=== PATIENT | female | born 1975 | race Caucasian/White ===

== ENCOUNTER 2017-01-28 08:41 | Emergency (ER) | payer MEDICAID ==
[~2017-01-28] VITALS: Ht 157.5 cm; Wt 65.8 kg
[2017-01-28 08:56] VITALS: BP 135/92
--- NOTE | 2017-01-28 09:00 | NUR ---
Patient ambulated to bed 07.
--- NOTE | 2017-01-28 09:04 | NUR ---
Dr. Laboy evaluating patient at bedside.
[2017-01-28] MEDS ORDERED: ONDANSETRON 4 MG ODT PO ONE (09:10)
[2017-01-28] MEDS ORDERED: KETOROLAC 60 MG/2 ML VIAL IM ONE (09:10)
--- NOTE | 2017-01-28 09:30 | NUR ---
41/F presents to the ED with c/o vomiting, abdominal pain and headache that started yesterday. Pt c/o diffuse abdominal pain, 8/10. No vomiting noted with in ED. Skin warm and dry, normal in color for ethnicity. Patient is AOX4, clear speech. Abdomen soft, non tender, active bowel sounds x4 quadrants.
--- NOTE | 2017-01-28 10:01 | NUR ---
Patient provided with water for po challenge. Will continue to monitor.
[2017-01-28] MEDS ORDERED: PROMETHAZINE 25 MG/ML VIAL IM ONE (10:10)
--- NOTE | 2017-01-28 10:34 | NUR ---
PLACED IN POSITION OF COMFORT. DIMMED LIGHTS. DAUGHTER AT BEDSIDE. PT IN NO DISTRESS. VSS.
[2017-01-28 10:42] VITALS: BP 128/86
--- NOTE | 2017-01-28 10:43 | NUR ---
Patient discharged with v/s stable. Written and verbal after care instructions given and explained. Patient alert, oriented and verbalized understanding of instructions. Ambulatory with steady gait. All questions addressed prior to discharge. ID band removed. Patient advised to follow up with PMD. Rx of ZOFRAN AND MOTRIN given. Patient educated on indication of medication including possible reaction and side effects. Opportunity to ask questions provided and answered.
== END 2017-01-28 10:43 | disposition home or self-care (01) ==
LOC: MED 08:41
DX: K52.9 Noninfective gastroenteritis and colitis, unspecified (principal); F17.200 Nicotine dependence, unspecified, uncomplicated; Z90.710 Acquired absence of both cervix and uterus
CPT/HCPCS: 82948; 96372; 99284; J1885; J2550; S0119

== ENCOUNTER 2017-02-01 14:27 | Emergency (ER) | payer MEDICAID ==
[~2017-02-01] VITALS: Ht 157.5 cm; Wt 65.8 kg
[2017-02-01 14:43] VITALS: BP 137/94
--- NOTE | 2017-02-01 16:17 | NUR ---
PT AMBULATED TO BED 6.
--- NOTE | 2017-02-01 16:18 | NUR ---
41/F BIB DAUGHTER /C/O LEFT SHOULD PAIN SINCE LAST NOC. PT DENIES ANY FALL OR TRAUMA. HX CVA 1 YEAR AGO, NO DEFICITS. DENIES N/V/D; SKIN IS PINK/WARM/DRY; AAOX4 WITH EVEN AND STEADY GAIT; LUNGS CLEAR BL; HR EVEN AND REGULAR; PT DENIES ANY FEVER, CP, SOB, OR COUGH AT THIS TIME; PATIENT STATES PAIN OF 8/10 AT THIS TIME; PATIENT POSITIONED FOR COMFORT; HOB ELEVATED; BEDRAILS UP X2; BED DOWN. ER MD MADE AWARE OF PT STATUS.
[2017-02-01] MEDS ORDERED: NACL 0.9% 1,000 ML IV SCH (16:20)
[2017-02-01] MEDS ORDERED: ONDANSETRON 4 MG/2 ML VIAL IVP ONE (16:20)
--- NOTE | 2017-02-01 16:22 | NUR ---
Patient being evaluated by physician at bedside.
[2017-02-01] MEDS ORDERED: KETOROLAC 30 MG/ML VIAL IVP ONE (16:25)
[2017-02-01 16:53] LABS: BASOPHILS # (AUTO) 0.1 K/uL (0.00-0.22); BASOPHILS % (AUTO) 1.6 % (0.0-2.0); EOSINOPHILS # (AUTO) 0.2 K/uL (0-0.4); EOSINOPHILS % (AUTO) 2.2 % (0.0-4.0); HEMATOCRIT 42.2 % (36-48); HEMOGLOBIN 13.8 g/dL (12.0-16.0); LYMPHOCYTES # (AUTO) 1.2 K/uL (2.5-16.5); LYMPHOCYTES % (AUTO) 14.7 % (20.5-51.1); MEAN CORPUSCULAR HEMOGLOBIN 29 pg (27-31); MEAN CORPUSCULAR HGB CONC 33 g/dL (33-37); MEAN CORPUSCULAR VOLUME 89 fL (80-94); MONOCYTES # (AUTO) 0.2 K/uL (0.8-1.0); MONOCYTES % (AUTO) 3.1 % (1.7-9.3); NEUTROPHILS # (AUTO) 6.1 K/uL (1.8-7.7); NEUTROPHILS % (AUTO) 78.4 % (42.2-75.2); PLATELET COUNT (AUTO) 210 K/uL (140-450); RED BLOOD CELL COUNT(AUTO) 4.76 MIL/uL (4.20-5.40); RED CELL DISTRIBUTION WIDTH 13.1 % (11.6-13.7); WHITE BLOOD COUNT (AUTO) 7.8 K/uL (4.8-10.8)
[2017-02-01 16:54] LABS: APPEARANCE,URINE CLEAR (CLEAR); BILIRUBIN,URINE NEGATIVE (NEGATIVE); BLOOD, URINE NEGATIVE (NEGATIVE); COLOR,URINE YELLOW (YELLOW); LEUKOCYTE ESTERASE ,URINE NEGATIVE (NEGATIVE); NITRITE, URINE NEGATIVE (NEGATIVE); PH,URINE 5.5 (5.0-9.0); PROTEIN,URINE NEGATIVE (NEGATIVE); UGLUCOSE NEGATIVE (NEGATIVE); UROBILINOGEN,URINE 0.2 EU/dL (0.2 - 1)
[2017-02-01 17:02] LABS: BACTERIA,URINE FEW /HPF (None Seen); RBC,URINE NONE SEEN /HPF (0-5); SQUAMOUS EPITHELIAL CELL,UR FEW /LPF (0-3 (FEW)); WBC,URINE 0-5 (RARE) /HPF (0-5)
[2017-02-01 17:23] LABS: ANION GAP 13.2 (8-16); CARBON DIOXIDE 25.6 mmol/L (21-32); POTASSIUM 3.8 mmol/L (3.5-5.1)
[2017-02-01 17:24] LABS: ALBUMIN 4.1 g/dL (3.4-5.0); CALCIUM 8.8 mg/dL (8.5-10.1); CREATININE 0.7 mg/dL (0.6-1.3); TOTAL BILIRUBIN 0.5 mg/dL (0.0-1.0); TOTAL PROTEIN, SERUM 7.3 g/dL (6.4-8.2)
[2017-02-01 18:19] VITALS: BP 119/79
== END 2017-02-01 18:19 | disposition home or self-care (01) ==
LOC: MED 14:27
DX: S46.912A Strain of unspecified muscle, fascia and tendon at shoulder and upper arm level, left arm, initial encounter (principal); Z86.73 Personal history of transient ischemic attack (TIA), and cerebral infarction without residual deficits; X58.XXXA Exposure to other specified factors, initial encounter; Y93.89 Activity, other specified; Y92.89 Other specified places as the place of occurrence of the external cause; Y99.8 Other external cause status
CPT/HCPCS: 36415; 80053; 81001; 81025; 82150; 83690; 85025; 96361; 96374; 96375; 99284; J1885; J2405; J7030

== ENCOUNTER 2019-01-24 22:23 | Emergency (ER) | payer MEDICAID ==
[~2019-01-24] VITALS: Ht 160 cm; Wt 59.0 kg
[2019-01-24 22:30] VITALS: BP 130/87
--- NOTE | 2019-01-24 22:30 | NUR ---
TO BED # 09 AMBULATORY
--- NOTE | 2019-01-24 22:38 | NUR ---
43/F COMPLAINS OF NEW RASH TO RIGHT LATERAL NECK FOR 1D. BRUNING SENSATION ASSOCIATED WITH RASH. PT DENIES HCX. DENIES RX. AO X4. ABLE TO VERBALIZE NEEDS. FAMILY AT BEDSIDE. MADE AWARE.
--- NOTE | 2019-01-24 22:49 | NUR ---
Dr. Wisdom evaluating patient at bedside.
[2019-01-24 23:12] VITALS: BP 135/82
--- NOTE | 2019-01-24 23:12 | NUR ---
Patient discharged with v/s stable. Written and verbal after care instructions given and explained. Patient alert, oriented and verbalized understanding of instructions. Ambulatory with steady gait. All questions addressed prior to discharge. ID band removed. Patient advised to follow up with PMD. Rx of BENADRYL AND HYDROCORTISONE given. Patient educated on indication of medication including possible reaction and side effects. Opportunity to ask questions provided and answered.
== END 2019-01-24 23:12 | disposition home or self-care (01) ==
LOC: MED 22:23
DX: R21 Rash and other nonspecific skin eruption (principal); K21.9 Gastro-esophageal reflux disease without esophagitis; Z86.73 Personal history of transient ischemic attack (TIA), and cerebral infarction without residual deficits
CPT/HCPCS: 99282

== ENCOUNTER 2019-03-09 01:25 | Emergency (ER) | payer MEDICAID ==
[~2019-03-09] VITALS: Ht 165.1 cm; Wt 59.9 kg
--- NOTE | 2019-03-09 01:34 | NUR ---
PT TAKEN TO BED 8
[2019-03-09 01:35] VITALS: BP 141/94
--- NOTE | 2019-03-09 01:35 | NUR ---
PT BIB FRIEND C/O RASH. PT STATES SUDDEN ONSET OF RASH TO LEFT ARM, ABD AND FACE STARTED TODAY; SKIN DRY, MILD REDNESS TO SIGHTS; +PRUITIS. PT TOOK BENADRYL AT 2130 W/O RELIEF. PT STATES 0/10 PAIN. PT IN BED; SAFETY PRECAUTIONS IN PLACE. PENDING ERMD LALITHA.
--- NOTE | 2019-03-09 01:40 | NUR ---
Dr. Wisdom examining patient.
[2019-03-09 02:15] VITALS: BP 141/94
--- NOTE | 2019-03-09 02:15 | NUR ---
Patient discharged with v/s stable. Patient acting approprialty and states she is ready to go home; 0/10 pain. Written and verbal after care instructions given and explained. Patient alert, oriented and verbalized understanding of instructions. Ambulatory with steady gait. All questions addressed prior to discharge. ID band removed. Patient advised to follow up with PMD. Rx of Benadryl given. Patient educated on indication of medication including possible reaction and side effects. Opportunity to ask questions provided and answered.
== END 2019-03-09 02:15 | disposition home or self-care (01) ==
LOC: MED 01:25
DX: L74.0 Miliaria rubra (principal); K21.9 Gastro-esophageal reflux disease without esophagitis
CPT/HCPCS: 99282; Q0163

== ENCOUNTER 2020-03-06 01:50 | Emergency (ER) | payer SELFPAY ==
[~2020-03-06] VITALS: Ht 160 cm; Wt 63.5 kg
[2020-03-06 01:50] VITALS: BP 150/103
--- NOTE | 2020-03-06 01:51 | NUR ---
PT TAKEN TO BED 7
--- NOTE | 2020-03-06 01:56 | NUR ---
Dr. Laura examining patient.
[2020-03-06] MEDS ORDERED: NACL 0.9% 1,000 ML IV ONE (02:00)
[2020-03-06] MEDS ORDERED: ONDANSETRON 4 MG/2 ML VIAL IVP ONE (02:00)
--- NOTE | 2020-03-06 02:00 | NUR ---
RECEVIED A 44/F FROM [facility] WITH A C/O ALOC SECONDARY TO MARIJUANA USE. PTS DAUGHTER STATES "SHE HAD A LITTLE PIECE OF AN EDIBLE". PT IS LETHARGIC BUT IS ALERT TO NAME, BIRTHDAY, PLACE, AND EVENT. PLACED ONTO CONTINOUS CARDIAC MONITORING. DR CARRASCO AT BEDSIDE FOR MSE.
[2020-03-06 02:09] LABS: BASOPHILS # (AUTO) 0.1 K/uL (0.00-0.22); BASOPHILS % (AUTO) 1.5 % (0.0-2.0); EOSINOPHILS # (AUTO) 0.1 K/uL (0-0.4); EOSINOPHILS % (AUTO) 1.2 % (0.0-4.0); HEMATOCRIT 37.5 % (36-48); HEMOGLOBIN 12.3 g/dL (12.0-16.0); LYMPHOCYTES # (AUTO) 2.6 K/uL (2.5-16.5); LYMPHOCYTES % (AUTO) 37.2 % (20.5-51.1); MEAN CORPUSCULAR HEMOGLOBIN 28 pg (27-31); MEAN CORPUSCULAR HGB CONC 33 g/dL (33-37); MEAN CORPUSCULAR VOLUME 84.6 fL (80-94); MONOCYTES # (AUTO) 0.5 K/uL (0.8-1.0); NEUTROPHILS # (AUTO) 3.7 K/uL (1.8-7.7); NEUTROPHILS % (AUTO) 53.1 % (42.2-75.2); PLATELET COUNT (AUTO) 300 K/uL (140-450); RED BLOOD CELL COUNT(AUTO) 4.43 MIL/uL (4.20-5.40); RED CELL DISTRIBUTION WIDTH 15.8 % (11.6-13.7); WHITE BLOOD COUNT (AUTO) 6.9 K/uL (4.8-10.8)
--- NOTE | 2020-03-06 02:11 | NUR ---
EKG PERFORMED AT BEDSIDE
[2020-03-06] MEDS ORDERED: METOCLOPRAMIDE 10 MG/2 ML INJ VIAL IVP ONE (02:15)
[2020-03-06] MEDS ORDERED: METOCLOPRAMIDE 10 MG/2 ML INJ VIAL ONE (02:15)
--- NOTE | 2020-03-06 02:17 | NUR ---
PT EXPERIENCING PERSISTANT EPISODES OF VOMITTING DESPITE ZOFRAN ADMINISTRATION. ORDER RECEVIED FOR 5MG REGLAN IVP, WILL MEDICATE ORDERED.
[2020-03-06 02:32] LABS: ALBUMIN 3.7 g/dL (3.4-5.0); ANION GAP 14.2 (8-16); ASPARTATE AMINOTRANSFERASE 12 U/L (15-37); CARBON DIOXIDE 23.4 mmol/L (21-32); CHLORIDE 106 mmol/L (98-107); CREATININE 0.9 mg/dL (0.6-1.3); FREE T4 (FREE THYROXINE) 1.13 ng/dL (0.76-1.46); GFR ARICAN-AMERICAN 87 mL/min (>90); GLUCOSE 140 mg/dL (74-106); SODIUM SERUM 141 mmol/L (136-145); THYROID STIMULATING HORMONE 1.81 uIU/mL (0.34-3.74); TOTAL BILIRUBIN 0.3 mg/dL (0.0-1.0); UREA NITROGEN, BLOOD 10 mg/dL (7-18)
[2020-03-06 02:39] LABS: ACETAMINOPHEN < 0.5 ug/ml (10-30); POTASSIUM 2.6 mmol/L (3.5-5.1); SALICYLATE < 2.8 mg/dL (2.8-20.0)
--- NOTE | 2020-03-06 02:44 | NUR ---
NO VOMITTING NOTED AFTER REGLAN ADMINISTRATION. WILL CONTINUE TO MONITOR.
[2020-03-06] MEDS ORDERED: KCL 20 MEQ/WATER INJ PREMIX 200 ML IV ONE (02:45)
[2020-03-06] MEDS ORDERED: POTASSIUM CHLORIDE 20% 40 MEQ/15 ML UDC PO ONE (02:45)
--- NOTE | 2020-03-06 02:48 | NUR ---
REPORT RETURNED TO PRIMARY RN, RENNY.
[2020-03-06 07:00] VITALS: BP 127/73
--- NOTE | 2020-03-06 07:00 | NUR ---
PT DISCHARGED WITH PAPERWORK. EDUCATED PT REGARDING MEDICATIONS AND D/C INSTRUCTIONS. PT VERBALIZED UNDERSTANDING OF TEACHING. TOLD PT TO FOLLOW UP WITH PCP AND WHEN TO RETURN TO ED. PT AT STABLE CONDITION. ALL QUESTIONS ANSWERED.
== END 2020-03-06 07:00 | disposition home or self-care (01) ==
LOC: MED 01:50
DX: T40.7X5A Adverse effect of cannabis (derivatives), initial encounter (principal); R11.2 Nausea with vomiting, unspecified; E87.6 Hypokalemia; K21.9 Gastro-esophageal reflux disease without esophagitis; Y92.89 Other specified places as the place of occurrence of the external cause
CPT/HCPCS: 36415; 80053; 84439; 84443; 85025; 93005; 96361; 96365; 96375; 99284; G0480; G0482; J2405; J2765; J3480; J7030

== ENCOUNTER 2023-06-05 21:57 | Emergency (ER) | payer MEDICAID ==
[~2023-06-05] VITALS: Ht 162.6 cm; Wt 72.6 kg
[2023-06-05 22:17] VITALS: BP 135/80; PULSE 63; RESP 16; TEMP 97; O2SAT 98
[2023-06-05] MEDS ORDERED: KETOROLAC 30 MG/ML VIAL IVP ONE (23:35)
[2023-06-05] MEDS ORDERED: NACL 0.9% 1,000 ML IV ONE (23:35)
[2023-06-06 00:17] LABS: BASOPHILS % (AUTO) 0.5 % (0.0-2.0); EOSINOPHILS % (AUTO) 0.5 % (0.0-4.0); HEMATOCRIT 35.6 % (36-48); HEMOGLOBIN 11.9 g/dL (12.0-16.0); LYMPHOCYTES % (AUTO) 11.9 % (20.5-51.1); MEAN CORPUSCULAR HEMOGLOBIN 28 pg (27-31); MEAN CORPUSCULAR HGB CONC 33 g/dL (33-37); MEAN CORPUSCULAR VOLUME 82.5 fL (80-94); MONOCYTES # (AUTO) 0.5 K/uL (0.8-1.0); NEUTROPHILS # (AUTO) 7.1 K/uL (1.8-7.7); NEUTROPHILS % (AUTO) 81.1 % (42.2-75.2); PLATELET COUNT (AUTO) 277 K/uL (140-450); RED BLOOD CELL COUNT(AUTO) 4.32 MIL/uL (4.20-5.40); RED CELL DISTRIBUTION WIDTH 14.4 % (11.6-13.7); WHITE BLOOD COUNT (AUTO) 8.8 K/uL (4.8-10.8)
[2023-06-06 00:32] LABS: ALBUMIN 3.8 g/dL (3.4-5.0); ANION GAP 12.7 (8-16); CALCIUM 8.8 mg/dL (8.5-10.1); CARBON DIOXIDE 25.5 mmol/L (21-32); POTASSIUM 4.2 mmol/L (3.5-5.1); TOTAL BILIRUBIN 0.3 mg/dL (0.0-1.0); TOTAL PROTEIN, SERUM 7.2 g/dL (6.4-8.2)
[2023-06-06 01:11] VITALS: O2SAT 98
[2023-06-06 01:21] LABS: BILIRUBIN,URINE NEGATIVE (NEGATIVE); BLOOD, URINE 3+ (NEGATIVE); LEUKOCYTE ESTERASE ,URINE TRACE (NEGATIVE); NITRITE, URINE POSITIVE (NEGATIVE); PH,URINE 7.5 (5.0-9.0); PROTEIN,URINE 3+ (NEGATIVE); UGLUCOSE TRACE (NEGATIVE); UROBILINOGEN,URINE 0.2 EU/dL (0.2 - 1)
[2023-06-06 01:25] LABS: APPEARANCE,URINE BLOODY (CLEAR); COLOR,URINE BLOODY (YELLOW)
[2023-06-06 01:29] LABS: RBC,URINE TOO NUMEROUS TO COUN /HPF (0-5)
[2023-06-06 01:30] LABS: WBC,URINE 0-5 /HPF (0-5)
[2023-06-06 01:31] LABS: BACTERIA,URINE OCCASSIONAL /HPF (None Seen); SQUAMOUS EPITHELIAL CELL,UR None Seen /LPF (0-3 (FEW))
[2023-06-06] MEDS ORDERED: NAPR-54 PO (01:41)
== END 2023-06-06 01:45 | disposition home or self-care (01) ==
LOC: MED 21:57
DX: N94.6 Dysmenorrhea, unspecified (principal); Z79.899 Other long term (current) drug therapy
CPT/HCPCS: 36415; 80053; 81001; 85025; 96361; 96374; 99283; J1885; J7030